=== PATIENT | male | born 1985 | race Two or more races ===

== ENCOUNTER 2017-07-04 21:01 | Emergency (ER) | payer MEDICAID, OTHER ==
[~2017-07-04] VITALS: Ht 172.7 cm; Wt 69.9 kg
[2017-07-04 21:03] VITALS: BP 129/78
--- NOTE | 2017-07-04 22:40 | NUR ---
PT IS BEING DISCHARGED BY ONE OF THE ER NURSE WHEN HE REFUSED AND STATED- "I WANT TO STAB SOMEONE!",PT NOTED HOLDING A STICK AND BEING VERBALLY AND PHYSICALLY AGGRESSIVE. CALLED SECURITY FOR ASSISTANCE, STICK REMOVED FROM PT'S HAND. MD AND PA AT WELL. PT SAFELY PLACED ON RESTRAINTS PER MD ORDER. PT IN A STABLE CONDITION. WILL MONITOR.
--- NOTE | 2017-07-04 23:13 | NUR ---
[employer] OFFICERS AT BS.
--- NOTE | 2017-07-04 23:15 | NUR ---
PT LEFT WITH [employer] OFFICERS.
== END 2017-07-04 23:44 ==
LOC: ER 21:02
DX: F15.10 Other stimulant abuse, uncomplicated (principal); Z91.013 Allergy to seafood; F17.200 Nicotine dependence, unspecified, uncomplicated
CPT/HCPCS: A4606; Z7610

== ENCOUNTER 2024-08-25 01:15 | Emergency (ER) | payer OTHER ==
[~2024-08-25] VITALS: Ht 182.9 cm; Wt 79.4 kg
[2024-08-25 01:42] VITALS: TEMP 98.2
[2024-08-25 01:56] VITALS: BP 148/91; O2SAT 98
[2024-08-25] MEDS ORDERED: ACETAMINOPHEN ES 500 MG TABLET ONE (02:18)
[2024-08-25] MEDS: ACETAMINOPHEN ES 500 MG TABLET PO ONE (02:19)
[2024-08-25] MEDS ORDERED: IBUP-1953 PO (04:58)
== END 2024-08-25 05:39 | disposition home or self-care (01) ==
LOC: EDUNIT# 01:15 → ER 01:18
DX: S00.83XA Contusion of other part of head, initial encounter (principal); H53.8 Other visual disturbances; R22.0 Localized swelling, mass and lump, head; F17.200 Nicotine dependence, unspecified, uncomplicated; Z86.69 Personal history of other diseases of the nervous system and sense organs; Z91.013 Allergy to seafood; Z91.09 Other allergy status, other than to drugs and biological substances; Y04.0XXA Assault by unarmed brawl or fight, initial encounter; Y93.89 Activity, other specified; Y92.89 Other specified places as the place of occurrence of the external cause; Y99.8 Other external cause status
CPT/HCPCS: 70450-TC; 70486-TC

== ENCOUNTER → 2024-08-27 | Emergency (ER) | payer OTHER ==
[~2024-08-27] VITALS: Ht 188 cm; Wt 77.1 kg
[~2024-08-27] MED LIST: IBUP-1953 PO
[2024-08-27 15:22] VITALS: BP 137/71; TEMP 97.8; O2SAT 100
[2024-08-27 17:04] LABS: APPEARANCE,URINE CLEAR (CLEAR); BILIRUBIN,URINE NEGATIVE (NEGATIVE); BLOOD, URINE NEGATIVE Ery/uL (NEGATIVE); COLOR,URINE YELLOW (YELLOW); KETONES,URINE NEGATIVE (NEGATIVE); LEUKOCYTE ESTERASE ,URINE NEGATIVE (NEGATIVE); NITRITE, URINE NEGATIVE (NEGATIVE); PH,URINE 6.5 (5.0-8.0); PROTEIN,URINE NEGATIVE (NEGATIVE); UGLUCOSE NEGATIVE (NEGATIVE); UROBILINOGEN,URINE 0.2 EU/dL (0.2)
[2024-08-27 17:16] LABS: AMPHETAMINE, URINE NEGATIVE (NEGATIVE); BARBITURATE, URINE NEGATIVE (NEGATIVE); BENZODIAZEPINE, URINE NEGATIVE (NEGATIVE); COCCAINE, URINE NEGATIVE (NEGATIVE); OPIATE, URINE NEGATIVE (NEGATIVE); PHENCYCLIDINE SCREEN,URINE NEGATIVE (NEGATIVE)
[2024-08-27 17:17] LABS: CANNABINOID, URINE POSITIVE (NEGATIVE)
== END | disposition left against medical advice (07) ==
LOC: ER 14:20
DX: R44.0 Auditory hallucinations (principal); F32.A Depression, unspecified; F41.9 Anxiety disorder, unspecified; F17.200 Nicotine dependence, unspecified, uncomplicated; Z86.69 Personal history of other diseases of the nervous system and sense organs; Z91.013 Allergy to seafood; Z91.09 Other allergy status, other than to drugs and biological substances; Z59.00 Homelessness unspecified; Z20.822 Contact with and (suspected) exposure to COVID-19